=== PATIENT | female | born 1990 | race Caucasian/White ===

== ENCOUNTER 2017-01-09 19:15 | Inpatient (IN) | payer OTHER ==
[~2017-01-09] VITALS: Ht 162.6 cm; Wt 81.6 kg
[2017-01-09 21:00] LABS: HEMOGLOBIN 12.5 gm/dl (12.3-15.3); RED BLOOD COUNT 4.14 M/UL (4.00-5.10)
[2017-01-11 04:00] LABS: HEMOGLOBIN 12.7 gm/dl (12.3-15.3)
[2017-01-11] MEDS ORDERED: IBUPROFEN600 MG PO (12:33)
[2017-01-11] MEDS ORDERED: COLACE 100MG C100 MG PO (12:34)
[2017-01-11] MEDS ORDERED: NORCO 5-325 TA1 EACH PO (12:34)
== END 2017-01-11 09:49 | disposition home or self-care (01) | DRG 775 ==
LOC: GENOP 19:15 → OB 20:43
PROVIDERS: Obstetrics & Gynecology; ADMIT Obstetrics & Gynecology
PROC: 10907ZC Drainage of Amniotic Fluid, Therapeutic from Products of Conception, Via Natural or Artificial Opening (ICD-10-PCS; principal; 2017-01-10)
PROC: 0HQ9XZZ Repair Perineum Skin, External Approach (ICD-10-PCS; 2017-01-10)
PROC: 10E0XZZ Delivery of Products of Conception, External Approach (ICD-10-PCS; 2017-01-10)
PROC: 3E0234Z Introduction of Serum, Toxoid and Vaccine into Muscle, Percutaneous Approach (ICD-10-PCS; 2017-01-11)
DX: O75.89 Other specified complications of labor and delivery (principal); Z3A.39 39 weeks gestation of pregnancy; Z37.0 Single live birth; O09.33 Supervision of pregnancy with insufficient antenatal care, third trimester; O71.4 Obstetric high vaginal laceration alone; Z23 Encounter for immunization; Z91.018 Allergy to other foods; Z82.49 Family history of ischemic heart disease and other diseases of the circulatory system
CPT/HCPCS: 36415; 80307; 81001; 82800; 83518; 85014; 85018; 85025; 90715; J2300; J2590; J3430; J7120

== ENCOUNTER 2021-12-10 16:59 | Emergency (ER) | payer OTHER ==
[~2021-12-10 16:59] MED LIST: ANTIVERT 25MG T25 MG PO; COLACE 100MG C100 MG PO; IBUPROFEN600 MG PO; NORCO 5-325 TA1 EACH PO; PRENATAL VITAM1 EAC3 PO
[2021-12-10 18:33] LABS: HEMOGLOBIN 14.3 gm/dl (12.3-15.3); RED BLOOD COUNT 4.71 M/UL (4.00-5.10); WHITE BLOOD COUNT 11.6 K/UL (4.5-11.0)
[2021-12-10 19:00] LABS: BUN/CREATININE RATIO 16 (0-10)
[2021-12-10] MEDS ORDERED: MACROBID 100 M100 MG PO (21:02)
== END 2021-12-10 21:30 | disposition home or self-care (01) ==
LOC: ER1 16:59
PROVIDERS: Physician Assistant
DX: O23.41 Unspecified infection of urinary tract in pregnancy, first trimester (principal); N39.0 Urinary tract infection, site not specified; O99.611 Diseases of the digestive system complicating pregnancy, first trimester; R19.7 Diarrhea, unspecified; J45.909 Unspecified asthma, uncomplicated; Z3A.10 10 weeks gestation of pregnancy
CPT/HCPCS: 80048; 81001; 85025; 99284